=== PATIENT | female | born 1955 | race Caucasian/White ===

== ENCOUNTER → 2016-03-26 10:30 | Day surgery (SDC) | payer BC ==
[~2016-03-26 10:30] MED LIST: BSS OPTH.SOL* BTL ONE; Buffered Lidocaine 1% SYR 3ML* 3 ML/SYR SYRINGE INTRADERM ONE; Buffered Lidocaine 1% SYR 3ML* 3 ML/SYR SYRINGE ONE; Bupivacaine 0.25% EPI 200,000* 30 ML SDV ONE; Lidocain 1% EPI 1:100,000 * 30 ML MDV ONE; Methylene Blue 1%* 10 ML VIAL ONE; Midazolam* 1 MG/ML 2 ML VIAL (2 MG) ONE; Mineral Oil Sterile, TOPICAL* 25 ML BTL ONE; ceFAZolin 2 GM PREMIX (*) 2 GM/50 ML BAG IVPB ONE; fentaNYL* 50 MCG/ML 2 ML VIAL (100 MCG VIAL) ONE
[2016-03-26 14:15] VITALS: BP 119/68
== END | disposition home or self-care (01) ==
LOC: OREAST 10:30
PROVIDERS: ATTEND Plastic Surgery
DX: C44.311 Basal cell carcinoma of skin of nose (principal)
CPT/HCPCS: A9270-GY; J0690; J2250; J3010